=== PATIENT | male | born 1980 | race Caucasian/White ===

== ENCOUNTER 2017-07-23 14:28 | Emergency (ER) | payer SELFPAY ==
[2017-07-23] MEDS ORDERED: Lidocaine 1% 5ml(IM or SUTURE)(PAIN CLINIC) ONE (14:37)
[2017-07-23 14:55] VITALS: BP 114/87
--- NOTE | 2017-07-23 15:00 | ED Physician Documentation ---
General Adult - HISTORIAN Historian: patient - HPI Stated Complaint: lac left hand Chief Complaint: General Adult Onset: minutes Timing: still present Severity: mild Further Comments: yes (Pt is a 37 yo male with a laceration to his L thenar eminence, which he sustained when he slipped using a sharp knife. Tetanus is utd. L Hand and thumb is neuromuscularly intact.) - ROS CONST: no problems EYES/ENT: none CVS/RESP: none GI/: none MS/SKIN/LYMPH: other (laceration L hand) - PAST HX Past History: other (L eye surgery; cardiac cath without stent placement) Allergies/Adverse Reactions: Allergies Allergy/AdvReac Type Severity Reaction Status Date / Time No Known Allergies Allergy Verified 07/23/17 15:02 Home Medications: Ambulatory Orders Medication Instructions Recorded NK [NK] 02/08/14 - SOCIAL HX Smoking History: cigarettes - FAMILY HX Family History: No - VITAL SIGNS Vital Signs: Vital Signs Temp Pulse Resp BP Pulse Ox 98.6 F 68 20 114/87 94 07/23/17 14:28 07/23/17 14:28 07/23/17 14:28 07/23/17 14:28 07/23/17 14:28 - REVIEWED ASSESSMENTS Nursing Assessment Reviewed: Yes Vitals Reviewed: Yes Procedures Wound Location: upper extremity (L hand, thenar eminence) Wound Length: 2 cm Wound's Depth, Shape: superficial Wound Explored: clean Irrigated w/ Saline (ccs): 10 Betadine Prep?: No (Nilesh) Anesthesia: 1% Lidocaine Wound Debrided: minimal Wound Repaired With: sutures Suture Size/Type: 4:0, nylon Number of Sutures: 3 Layer Closure?: No Sterile Dressing Applied?: Yes Progress - Progress Progress: Topical abx, Triple abx. d/c instructions Apply topical antibiotic, such as Neosporin, Bacitracin, or Triple Antibiotic to sutured area twice daily for 5 days. Follow up with primary provider in 5 to 7 days for suture removal. ED Results Lab/Radiology - Orders Orders: ED Orders Category Date Time Status Lidocaine 1% 5ml(IM or SUTURE) [Xylocaine] Med 07/23/17 14:37 Discontinued 50 mg .ROUTE .STK-MED ONE General Adult Physical Exam - PHYSICAL EXAM GENERAL APPEARANCE: mild distress NECK: normal inspection, supple RESPIRATORY: no resp distress, chest non-tender, breath sounds normal CVS: reg rate & rhythm BACK: normal inspection SKIN: other (2 cm laceration L thenar eminence; neuromuscularly intact) EXTREMITIES: non-tender, normal range of motion NEURO: oriented X3, motor nml, sensation nml Discharge Clincal Impression: Laceration L hand Referrals: Primary Doctor,No [Primary Care Provider] - Condition: Good Disposition: 01 HOME, SELF-CARE Decision to Admit: NO Decision Time: 15:04
== END 2017-07-23 15:11 | disposition home or self-care (01) ==
LOC: ED 14:28
DX: S61.412A Laceration without foreign body of left hand, initial encounter (principal); X58.XXXA Exposure to other specified factors, initial encounter; Y93.9 Activity, unspecified; Y99.9 Unspecified external cause status
CPT/HCPCS: 12001; 99283

== ENCOUNTER 2018-10-13 12:14 | Emergency (ER) | payer SELFPAY ==
[2018-10-13] MEDS ORDERED: ASPIRIN 81 MG CHEW TAB PO ONE (12:24)
[2018-10-13 12:40] LABS: BASOPHILS % 0.5 (0.0-1.5); EOSINOPHILS % 1.2 % (0.0-6.8); MEAN CORPUSCULAR HEMOGLOBIN 28.1 pg (28.0-34.0); NEUTROPHILS # 9.7 # k/uL (1.4-7.7)
--- NOTE | 2018-10-13 13:11 | ED Physician Documentation ---
Chest Pain - HPI Stated Complaint: Chest pain Chief Complaint: Chest Pain Additional Information: Patient presents to ED via EMS from senior care with chest pain, pressure like/dullache, non-radiating, 06/01. Patient states he had a tooth extraction today where he received local anesthetic. He states once he returned to the senior care he began to have substernal chest pain. He denies diaphoresis, shortness of breath, nausea/vomiting or dizziness. He has a history of NE in 2012. He was sent to [facility] where he underwent a cardiac cath. He states they did not put a stent in nor was he prescribed medications at that time. Last known Well Date: 10/13/18 Last Known Well Time: 12:00 Last known Well Code/Unknown Code: Known Context: other (after returning to alf) Severity: moderate Quality: pressure, dull, aching Chest Pain Radiation: no radiation Chest Pain Signs/Symptoms: denies: nausea, vomiting, diaphoresis Worsened By: nothing Relieved By: nothing - ROS CONST: other (tooth extraction) MS/LYMPH: none GI/: none EYES/ENT: none SKIN/ENDO: none NEURO/PSYCH: none - PAST HX NE risk factors: hypertension DVT/PE Risk Factors: none TAD/AAA risk factors: none Neuro deficit: none GI disease: none Lung disease: none Surgeries/Procedures: none, cardiac cath (2012 no intervention) Allergies/Adverse Reactions: Allergies Allergy/AdvReac Type Severity Reaction Status Date / Time No Known Allergies Allergy Verified 10/13/18 12:42 Home Medications: Ambulatory Orders Medication Instructions Recorded Sertraline HCl [Zoloft] 1 tab PO DAILY 10/13/18 - SOCIAL HX Smoking History: cigarettes Alcohol Use: none Drug Use: none - FAMILY HX Family HX: none - VITAL SIGNS Vital Signs: Vital Signs Temp Pulse Resp BP Pulse Ox 59 L 55 H 114/81 99 10/13/18 12:14 10/13/18 12:14 10/13/18 12:14 10/13/18 12:14 - REVIEWED ASSESSMENTS Nursing Assessment Reviewed: Yes Vitals Reviewed: Yes Progress - Results/Orders Results/Orders: Examination: Plain film right knee History: RT KNEE PAIN AND SWELLING. UNKNOWN HOW LONG OR IF INJURED. Findings: 3 views of the right knee demonstrates osteopenia. Articular degenerative spurring. No displaced fracture lucency. No joint effusion. Impression: Osteopenia and degenerative changes. No acute appearing osseous abnormality Electronically signed on Oct 13, 2018 1:23:22 PM AB INITIO ETL DEVELOPER by: Corey Tobias - Progress Progress: 1355 Patient laughing and joking with guard. Patient reports feeling better. Discussed results and pending discharge after fluids complete. Likely source of chest discomfort is from lidocaine used in tooth extraction. - EKG/XRAY/CT Comments: Sinus bradycardia 55 bpm ED Results Lab/Radiology - Lab Results Lab Results: Lab Results 10/13/18 12:37 WBC 11.50 K/ul K/ul (4.00-12.00) RBC 5.57 M/ul H M/ul (3.90-5.20) Hgb 15.6 g/dL g/dL (12.0-18.0) Hct 47.0 % % (37.0-53.0) MCV 85.0 fl fl (80.0-100.0) MCH 28.1 pg pg (28.0-34.0) MCHC 33.2 g/dL g/dL (30.0-36.0) RDW 13.7 % % (11.3-14.3) Plt Count 333 K/mm3 K/mm3 (130-400) Neut % (Auto) 84.3 % H % (39.0-79.0) Lymph % (Auto) 11.0 % L % (16.0-50.0) Geary % (Auto) 3.0 % % (0.0-11.0) Eos % (Auto) 1.2 % % (0.0-6.8) Baso % (Auto) 0.5 (0.0-1.5) Neut # (Auto) 9.7 # k/uL H # k/uL (1.4-7.7) Lymph # (Auto) 1.3 # k/uL # k/uL (0.6-4.0) Geary # (Auto) 0.3 # k/uL # k/uL (0.0-0.9) Eos # (Auto) 0.1 # k/uL # k/uL (0.0-0.6) Baso # (Auto) 0.1 # k/uL # k/uL (0.0-0.5) - Radiology Radiology Impressions: Examination: Portable chest History: Evaluate lungs DOESN'T FEEL WELL POST TOOTH EXTRACTION TODAY. Comparison exam: None provided. Findings: Single view of the chest demonstrates lordotic positioning. Normal cardiac and mediastinal silhouette. Lung robledo without focal infiltrate. No blunting of the costophrenic margins. Osseous structures are appropriate for age. Impression: No acute pulmonary process. Electronically signed on Oct 13, 2018 1:08:50 PM AB INITIO ETL DEVELOPER by: Corey Tobias - Orders Orders: ED Orders Category Date Time Status Place IV Lock 1T Care 10/13/18 12:23 Active CHEST 1VIEW [RAD] Stat Exams 10/13/18 Taken CBC/PLATELET/DIFF Routine Lab 10/13/18 12:37 Completed CMP Routine Lab 10/13/18 12:37 Received NT-proBNP Stat Lab 10/13/18 12:37 Received TROPONIN I (cTnI) Stat Lab 10/13/18 12:37 Received Aspirin Med 10/13/18 12:24 Discontinued 324 mg PO NOW ONE EKG WITH COMPARISON Stat Ther 10/13/18 Ordered Chest Pain Physical Exam - EXAM General Appearance: no acute distress, alert EENT: JESUS (right eye only. Left eye with scar) Neck: nml inspection Respiratory: no resp. distress, chest non-tender, nml breath sounds CVS: reg. rate & rhythm, no murmur Abdomen: soft, normal bowel sounds Skin: warm/dry Extremities: non-tender Neuro: oriented X3 Discharge Clincal Impression: Drug reaction Qualifiers: Encounter type: initial encounter Qualified Code(s): T50.905A - Adverse effect of unspecified drugs, medicaments and biological substances, initial encounter Referrals: Primary Doctor,No [Primary Care Provider] - 2 Days Additional Instructions: 1. Lidocaine is likely the cause for your chest discomfort. In the future let your dentist know you have this reaction. 2. Drink plenty of fluids to maintain proper hydration 3. Follow up with PCP as needed 4. Return to ER for new or worsening symptoms. Condition: Stable Disposition: 01 HOME, SELF-CARE Decision to Admit: NO Date of Decison to Admit: 10/13/18 Decision Time: 14:03
[2018-10-13] MEDS ORDERED: 0.9 % SODIUM CHLORIDE 1,000 ML IV ONE (13:16)
[2018-10-13 13:32] LABS: eGFR (Non-African) > 60
--- NOTE | 2018-10-13 14:13 | Diagnostic Imaging Report ---
COURTNEY HERRERA [facility] [address] [facility] [address] [place], [place]. 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 Comparison exam: None provided. Findings: Single view of the chest demonstrates lordotic positioning. Normal cardiac and mediastinal silhouette. Lung robledo without focal infiltrate. No blunting of the costophrenic margins. Osseous structures are appropriate for age. Impression: No acute pulmonary process. Electronically signed on Oct 13, 2018 1:08:50 PM COMPACTING MACHINE OPERATOR/TENDER by: Corey NASH
[2018-10-13 14:48] VITALS: BP 126/71
== END 2018-10-13 14:35 | disposition home or self-care (01) ==
LOC: ED 12:14
DX: R07.9 Chest pain, unspecified (principal); T41.3X5A Adverse effect of local anesthetics, initial encounter; Y92.9 Unspecified place or not applicable
CPT/HCPCS: 36415; 71045; 80053; 83880; 84484; 85025; 93005; 99283; 99285; J7030; S1016

== ENCOUNTER 2018-11-19 00:01 | Emergency (ER) | payer SELFPAY ==
[2018-11-19] MEDS ORDERED: ASPIRIN 81 MG CHEW TAB PO ONE (00:12)
--- NOTE | 2018-11-19 00:12 | ED Physician Documentation ---
Chest Pain - HISTORIAN Historian: patient - HPI Stated Complaint: chest pain Chief Complaint: Chest Pain Onset: hours (4) Timing: sudden onset Duration: constant Last known Well Date: 11/19/18 Last Known Well Time: 18:00 Last known Well Code/Unknown Code: Unknown Context: rest Severity: moderate Quality: pressure, like prior NM Chest Pain Radiation: no radiation Chest Pain Signs/Symptoms: diaphoresis. denies: nausea, vomiting, dyspnea Worsened By: nothing Relieved By: nothing Further Comments: yes (Per he started with chest pain about 4 hours ago. He went outside the rest[employer]ant and he "fell out" and she states he woke and "fell out again" she states after this happening three times the ambulance was called and he refused the ambulance so the started home from . She states that he then stated he needed to be seen so he presented here with chest pain 07/01 and has a history of NM.) - ROS CONST: none - PAST HX NM risk factors: AMI Neuro deficit: none GI disease: none Allergies/Adverse Reactions: Allergies Allergy/AdvReac Type Severity Reaction Status Date / Time No Known Allergies Allergy Verified 11/19/18 00:18 Home Medications: Ambulatory Orders Medication Instructions Recorded Sertraline HCl [Zoloft] 1 tab PO DAILY 10/13/18 - SOCIAL HX Smoking History: cigarettes Alcohol Use: occasionally Drug Use: none - FAMILY HX Family HX: none - VITAL SIGNS Vital Signs: Vital Signs Temp Pulse Resp BP Pulse Ox 126/71 10/13/18 14:35 - REVIEWED ASSESSMENTS Nursing Assessment Reviewed: Yes Vitals Reviewed: Yes Chest Pain Physical Exam - EXAM General Appearance: no acute distress, alert EENT: eye inspection normal, no signs of dehydration Neck: nml inspection Respiratory: no resp. distress, chest non-tender, nml breath sounds CVS: reg. rate & rhythm Abdomen: no distension Skin: warm/dry Extremities: non-tender, normal range of motion, no evidence of injury, no edema Neuro: oriented X3 Discharge Clincal Impression: STEMI (ST elevation myocardial infarction) Qualifiers: Involved coronary artery: unspecified coronary artery Qualified Code(s): I21.3 - ST elevation (STEMI) myocardial infarction of unspecified site Referrals: Primary Doctor,No [Primary Care Provider] - 2 Days Comments: [facility] Condition: Serious Disposition: 02 XFER SHT-TRM HOSP Decision to Admit: NO Date of Decison to Admit: 11/19/18 Decision Time: 00:21
[2018-11-19 00:29] LABS: EOSINOPHILS % 1.4 % (0.0-6.8); MEAN CORPUSCULAR HEMOGLOBIN 28.1 pg (28.0-34.0); MONOCYTES % 4.2 % (0.0-11.0); NEUTROPHILS # 10.3 # k/uL (1.4-7.7)
[2018-11-19 00:33] LABS: eGFR (Non-African) > 60
[2018-11-19 00:51] VITALS: BP 171/114
[2018-11-19] MEDS ORDERED: ASPIRIN 325 MG TABLET ONE (03:47)
--- NOTE | 2018-11-19 05:27 | Diagnostic Imaging Report ---
ARIAS PARSONS [facility] [address] [facility] [address] [place], [place]. [address] Report Submission Date: Nov 19, 2018 12:30:01 AM COURTESY BUS DRIVER Patient Study Name: MARYA SCOTT Date: Nov 19, 2018 12:11:44 AM COURTESY BUS DRIVER Modality Type: DX Gender: M Description: CHEST 1VIEW : 80 Institution: [facility] Physician: ARIAS PARSONS AP chest Clinical history: Chest pain. Findings: Examination of the chest in single AP view with comparison to examination 10/13/2018 demonstrates lungs to be hypoventilated but clear. Cardiovascular and mediastinal silhouettes are within normal limits. Monitor leads superimpose the chest. Impression: 1. Hypoventilation. 2. No active disease. Electronically signed on Nov 19, 2018 12:30:01 AM COURTESY BUS DRIVER by: Lee NASH
== END 2018-11-19 00:30 | disposition short-term general hospital (02) ==
LOC: ED 00:01
DX: I21.3 ST elevation (STEMI) myocardial infarction of unspecified site (principal); I25.2 Old myocardial infarction; Z72.0 Tobacco use
CPT/HCPCS: 36415; 71045; 80053; 80320; 82550; 82553; 84484; 85025; 99285; G0480; S1016